=== PATIENT | female | born 1985 | race Two or more races ===

== ENCOUNTER 2022-12-04 21:51 | Emergency (ER) | payer SELFPAY ==
[2022-12-04] MEDS ORDERED: Acetaminophen 325 MG Tab PO ONE (22:56)
[2022-12-04] MEDS ORDERED: Lidocaine 5% 700 MG Patch TRDERM ONE (22:56)
== END 2022-12-04 23:42 | disposition home or self-care (01) ==
LOC: MW.ED 21:51
DX: M54.50 Low back pain, unspecified (principal)
CPT/HCPCS: 99283; A9270

== ENCOUNTER 2024-02-02 13:32 | Emergency (ER) | payer BC ==
[2024-02-02 14:02] LABS: BILIRUBIN,URINE NEGATIVE (NEGATIVE); COLOR,URINE YELLOW; GLUCOSE,URINE NEGATIVE (NEGATIVE); KETONES,URINE NEGATIVE (NEGATIVE); LEUKOCYTE ESTERASE,URINE SMALL (NEGATIVE); NITRITE,URINE NEGATIVE (NEGATIVE); OCCULT BLOOD,URINE SMALL (NEGATIVE); PH,URINE 6.5 (5.0-8.0); PROTEIN,URINE NEGATIVE (NEGATIVE); UROBILINOGEN,URINE 0.2 EU/dL (<2.0)
[2024-02-02 14:06] LABS: APPEARANCE,URINE HAZY
[2024-02-02 14:26] LABS: BACTERIA,URINE FEW (NEGATIVE); MUCUS,URINE LIGHT (NONE-MOD); RBC,URINE 0-1 (0-2/HPF); SQUAMOUS EPITHELIAL CELLS,UR MODERATE
== END 2024-02-02 15:22 | disposition home or self-care (01) ==
LOC: MW.ED 13:32
DX: N12 Tubulo-interstitial nephritis, not specified as acute or chronic (principal)
CPT/HCPCS: 81001; 81003; 81025; 87086; 99283

== ENCOUNTER 2025-04-18 00:43 | Inpatient (IN) | payer OTHER ==
[2025-04-17] MEDS: Lactated Ringers 1,000 ML IV SCH (02:00)
[2025-04-18] MEDS ORDERED: Carboprost Tromethamine 250 MCG/1 mL Vial IM PRN (01:19)
[2025-04-18] MEDS ORDERED: Sodium Chloride 0.9% 2.5 ML Syringe FLUSH PRN (01:19)
[2025-04-18] MEDS ORDERED: Sodium Chloride 0.9% 10 ML Syringe FLUSH PRN (01:19)
[2025-04-18] MEDS ORDERED: Ondansetron 4 MG/2 ML SDV IVPUSH PRN (01:19)
[2025-04-18] MEDS ORDERED: Misoprostol 25 MCG (1/4 of 100 MCG) Tab VAG PRN (01:19)
[2025-04-18] MEDS ORDERED: Water For Irrigation,Sterile 1,000 ML Container IRR PRN (01:19)
[2025-04-18] MEDS ORDERED: Terbutaline 1 MG/ML SDV SUBCUT PRN (01:19)
[2025-04-18] MEDS ORDERED: Oxytocin/0.9 % Sodium Chloride 30 UNIT/500 ML BAG IV SCH (01:30)
[2025-04-18 02:13] LABS: MEAN PLATELET VOLUME 11.6 fL (9.4-12.3); NRBC ABSOLUTE 0.00 K/uL (0.00-0.02); NRBC PERCENT 0.0 /100WBC (0.0-0.2); PLATELET COUNT,PLT 229 K/uL (150-400); RED BLOOD CELL COUNT 3.86 M/uL (4.10-5.30); WHITE BLOOD CELL COUNT,WBC 8.34 K/uL (3.9-11.3)
[2025-04-18] MEDS: Misoprostol 25 MCG (1/4 of 100 MCG) Tab VAG PRN (04:00)
[2025-04-18] MEDS: Misoprostol 25 MCG (1/4 of 100 MCG) Tab PO PRN (04:00)
[2025-04-18] MEDS: Butorphanol 1 MG/ML SDV IVPUSH PRN (05:19)
[2025-04-18] MEDS ORDERED: dexmedeTOMIDine HCl 200 MCG/2 ML SDV ONE (07:04)
[2025-04-18] MEDS ORDERED: Ropivacaine HCl/PF 200 ML ONE (07:04)
[2025-04-18] MEDS ORDERED: Ropivacaine HCl/PF 400 MG in Premix Bag 1 BAG EPIDUR SCH (07:30)
[2025-04-18] MEDS ORDERED: dexmedeTOMIDine HCl 200 MCG/2 ML SDV EPIDUR SCH (07:30)
[2025-04-18] MEDS ORDERED: ePHEDrine 50 MG/ML SDV IVPUSH PRN (07:30)
[2025-04-18] MEDS: Oxytocin/0.9 % Sodium Chloride 30 UNIT/500 ML BAG IV SCH (11:35)
[2025-04-18] MEDS: ceFAZolin 2 GM in Water For Injection, Sterile 20 ML IVPUSH ONE (17:30)
[2025-04-18] MEDS: Benzocaine/Menthol 20%-0.5% Spray 78 GM Cannister TOP PRN (19:29)
[2025-04-18] MEDS: Witch Hazel Medicated Pads 40/Jar TOP PRN (19:30)
[2025-04-18] MEDS: Lanolin 100% Cream 7 GM Tube TOP PRN (19:30)
== END 2025-04-19 14:55 | disposition home or self-care (01) | DRG 807 ==
LOC: EEVIPCON → MW.OBCHECK 00:43 → MW.OB 00:44 → MW.OBCHECK 01:19 → OBSVTOIN 11:20 → MW.OB 19:10
PROVIDERS: ADMIT Obstetrics & Gynecology Obstetrics; ATTEND Obstetrics & Gynecology Obstetrics
PROC: 10E0XZZ Delivery of Products of Conception, External Approach (ICD-10-PCS; principal; 2025-04-18)
PROC: 3E0R3BZ Introduction of Anesthetic Agent into Spinal Canal, Percutaneous Approach (ICD-10-PCS; 2025-04-18)
DX: O99.02 Anemia complicating childbirth (principal); Z37.0 Single live birth; Z3A.39 39 weeks gestation of pregnancy
CPT/HCPCS: 01967; 36415; 51702; 59000; 59020; 59409; 59414; 84112; 85014; 85018; 85027; 86592; 86850; 86900; 86901; A9270-GY; J0595; J0665; J0690; J2371; J2590; J2795; J7120